=== PATIENT | female | born 1970 | race Native Hawaiian/Other Pacific Islander ===

== ENCOUNTER → 2022-12-02 | Outpatient (CLI) | payer BC ==
--- NOTE | 2022-12-02 15:17 | Diagnostic Imaging Report ---
PROCEDURE: Pelvic comp/transvaginal sonogram. TECHNIQUE: Complete transabdominal and transvaginal pelvic ultrasound was performed. In addition, limited pelvic Doppler was performed. INDICATION: Pelvic pain. Patient underwent hysterectomy in 1997. FINDINGS: The uterus is surgically absent. The right ovary measures 3.1 x 0.7 x 2.0 cm and the left ovary measures 2.2 x 1.1 x 0.9 cm. There is blood flow to both ovaries. No adnexal mass or free pelvic fluid is detected. IMPRESSION: 1. Status post hysterectomy. 2. The study is otherwise unremarkable. Dictated by: Dictated on workstation # [id number]
== END ==
LOC: RAD 09:14
PROVIDERS: ATTEND Obstetrics & Gynecology
DX: R10.2 Pelvic and perineal pain (principal); Z90.710 Acquired absence of both cervix and uterus
CPT/HCPCS: 76830; 76856

== ENCOUNTER 2022-12-16 05:32 | Outpatient (CLI) | payer BC ==
[~2022-12-16] VITALS: Ht 170 cm; Wt 56.5 kg
== END 2022-12-16 09:41 ==
LOC: PREOP 05:32
PROVIDERS: ATTEND Obstetrics & Gynecology
DX: Z01.818 Encounter for other preprocedural examination (principal)

== ENCOUNTER 2022-12-23 08:15 | Day surgery (SDC) | payer BC ==
[~2022-12-23] VITALS: Ht 170 cm; Wt 56.5 kg
[2022-12-23] MEDS ORDERED: LACTATED RINGERS 1,000 ML IV PRN (08:30)
[2022-12-23 08:31] VITALS: BP 144/96
[2022-12-23] MEDS ORDERED: BUPIVACAINE 0.25% 30 ML VIAL ONE (08:37)
[2022-12-23 08:54] LABS: BASOPHILS # (AUTO) 0.1 10^3/uL (0.0-0.1); BASOPHILS % (AUTO) 2 % (0-10); EOSINOPHILS # (AUTO) 0.3 10^3/uL (0.0-0.3); EOSINOPHILS % (AUTO) 5 % (0-10); HEMATOCRIT 40 % (35-52); HEMOGLOBIN 14.1 g/dL (11.5-16.0); LYMPHOCYTES # (AUTO) 1.4 10^3/uL (1.0-4.0); LYMPHOCYTES % (AUTO) 26 % (12-44); MEAN CORPUSCULAR HEMOGLOBIN 33 pg (25-34); MEAN CORPUSCULAR HGB CONC 35 g/dL (32-36); MEAN CORPUSCULAR VOLUME 94 fL (80-99); MEAN PLATELET VOLUME 8.9 fL (9.0-12.2); MONOCYTES # (AUTO) 0.7 10^3/uL (0.0-1.0); MONOCYTES % (AUTO) 12 % (0-12); NEUTROPHILS % (AUTO) 55 % (42-75); PLATELET COUNT 377 10^3/uL (130-400); WHITE BLOOD COUNT 5.5 10^3/uL (4.3-11.0)
== END 2022-12-23 09:29 | disposition home or self-care (01) ==
LOC: SDC 08:15
PROVIDERS: ATTEND Obstetrics & Gynecology
DX: N90.89 Other specified noninflammatory disorders of vulva and perineum (principal); Z53.8 Procedure and treatment not carried out for other reasons
CPT/HCPCS: 36415; 85025; 86850; 86900; 86901; 87081

== ENCOUNTER 2022-12-30 10:31 | Day surgery (SDC) | payer BC ==
[2022-12-30] VITALS (9 sets, daily range): BP systolic 119–132; BP diastolic 78–95
[~2022-12-30] VITALS: Ht 170 cm; Wt 56.5 kg
[2022-12-30] MEDS: LACTATED RINGERS 1,000 ML IV PRN ×2 (10:49→12:25)
--- NOTE | 2022-12-30 11:01 | History & Physical-Surgical ---
HPO-Surgical History of Present Illness Chief Complaint: Right labial lesion Diagnosis/Surgical Indication: RIGHT LABIAL LESION Procedure: WIDE LOCAL EXCISION RIGHT LABIAL LESION Date of Surgery: Dec 30, 2022 Allergies and Home Medications Allergies Coded Allergies: clindamycin (Verified Allergy, Unknown, RASH, 12/16/22) hydrocodone (Verified Allergy, Unknown, INTERNAL ITCH, 12/16/22) morphine (Verified Allergy, Unknown, INTERNAL ITCH, 12/16/22) oxycodone (Verified Allergy, Unknown, INTERNAL ITCH, 12/16/22) tramadol (Verified Allergy, Unknown, FAMILY HX-UNKNOWN, 12/16/22) STATES FATHER/SISTER'S ALL HAVE ALLERGIES TO PAIN MEDICATIONS Patient Home Medication List Home Medication List Reviewed: Yes No Active Prescriptions or Reported Meds Past Jaycmjj-Otezid-Akkvxv Hx Patient Social History Alcohol Beverage of Choice: Beer Smoking Status: Current Everyday Smoker 2nd Hand Smoke Exposure: Yes Recent Hopitalizations: No Immunizations Up To Date Tetanus Booster (TDap): Unknown Seasonal Allergies Seasonal Allergies: No Surgeries Yes (R SHOULDER RC SPURS, ESTHER RIGHT ARM) Hysterectomy Respiratory Yes Cardiovascular No Neurological No Reproductive System Sexually Transmitted Disease: No HIV/AIDS: No Female Reproductive Disorders: Denies [employer] History: Hysterectomy Genitourinary No Gastrointestinal No Musculoskeletal Yes (RIGHT ARM) Scoliosis, Chronic Back Pain, Fractures Endocrine History of Endocrine Disorders: No HEENT History of HEENT Disorders: No Cancer No Psychosocial History of Psychiatric Problem: Yes Behavioral Health Disorders: Anxiety, Depression Integumentary History of Skin or Integumenta: No Blood Transfusions History of Blood Disorders: No Exam Vital Signs Capillary Refill : Labs Laboratory Tests Test 12/30/22 10:45 Range/Units General Appearance: Alert, Oriented X3 HEENT: Atraumatic Respiratory: Clear to Auscultation Cardiovascular: Regular Rate Abdominal: Normal Bowel Sounds Extremities: No Clubbing Neuro: Normal Gait Psych/Mental Status: Mental Status NL Assessment/Plan Admission Diagnosis Diagnosis: Right labial lesion P: Wide local excision Admission Status: Other (Same Day Surgery) CORIN ROJO DO Dec 30, 2022 11:01
--- NOTE | 2022-12-30 11:03 | Discharge Inst-Women's Service ---
Discharge Inst-Women's Serv Depart Medication/Instructions New, Converted or Re-Newed RX: Transmitted to Pharmacy Problems Reviewed?: Yes Consults/Follow Up Additional Follow Up: Yes Orders/Referrals Dr. Rojo in 7-10 days Activity Activity: Activity as Tolerated Driving Instructions: You May Drive NO SMOKING: NO SMOKING Nothing Inside Vagina: No Douching, No Enlow, No Tampons Diet Discharge Diet: No Restrictions Symptoms to Report to : Bleeding Excessive, Pain Increased, Fever Over 101 Degrees F, Vaginal Bleeding Increase, Questions/Concerns For Any Problems or Questions: Contact Your Physician CORIN ROJO DO Dec 30, 2022 11:03
[2022-12-30] MEDS ORDERED: TRM50T PO (11:04)
[2022-12-30] MEDS ORDERED: IBUP-1773 PO (11:04)
[2022-12-30 11:06] LABS: AMPHETAMINE SCREEN, URINE NEGATIVE (NEGATIVE); BARBITURATE SCREEN URINE NEGATIVE (NEGATIVE); BENZODIAZEPINES SCREEN URINE NEGATIVE (NEGATIVE); CANNABINOID SCREEN, URINE POSITIVE (NEGATIVE); COCAINE SCREEN URINE NEGATIVE (NEGATIVE); METHADONE STAT NEGATIVE (NEGATIVE); OPIATE SCREEN URINE NEGATIVE (NEGATIVE); OXYCODONE STAT NEGATIVE (NEGATIVE); PROPOXYPHENE STAT NEGATIVE (NEGATIVE); TRICYCLIC ANTIDEPRESSANTS SCRE NEGATIVE (NEGATIVE)
[2022-12-30] MEDS ORDERED: LIDOCAINE 1% w/EPI 1:100,000 20 ML VIAL ONE (11:13)
[2022-12-30 11:14] LABS: BASOPHILS # (AUTO) 0.1 10^3/uL (0.0-0.1); BASOPHILS % (AUTO) 1 % (0-10); EOSINOPHILS # (AUTO) 0.3 10^3/uL (0.0-0.3); EOSINOPHILS % (AUTO) 4 % (0-10); HEMATOCRIT 43 % (35-52); HEMOGLOBIN 14.4 g/dL (11.5-16.0); LYMPHOCYTES % (AUTO) 34 % (12-44); MEAN CORPUSCULAR HEMOGLOBIN 33 pg (25-34); MEAN CORPUSCULAR HGB CONC 34 g/dL (32-36); MEAN CORPUSCULAR VOLUME 96 fL (80-99); MEAN PLATELET VOLUME 9.1 fL (9.0-12.2); MONOCYTES # (AUTO) 0.6 10^3/uL (0.0-1.0); MONOCYTES % (AUTO) 10 % (0-12); NEUTROPHILS # (AUTO) 2.9 10^3/uL (1.8-7.8); NEUTROPHILS % (AUTO) 50 % (42-75); PLATELET COUNT 365 10^3/uL (130-400); WHITE BLOOD COUNT 5.7 10^3/uL (4.3-11.0)
[2022-12-30] MEDS ORDERED: KETOROLAC INJ 30 MG/ML VIAL IVP ONE (11:15)
[2022-12-30] MEDS ORDERED: ONDANSETRON 4 MG/2 ML (SDV) Z0FRAN IVP PRN ×2 (11:15→12:30)
[2022-12-30] MEDS ORDERED: D5 LR 1,000 ML IV SOLN 1,000 ML IV SCH (11:15)
[2022-12-30] MEDS ORDERED: MIDAZOLAM INJ 2 MG/2 ML VIAL ONE (11:50)
[2022-12-30] MEDS ORDERED: fentaNYL INJECTION 100 MCG/2 ML VIAL ONE (11:50)
[2022-12-30] MEDS ORDERED: LIDOCAINE PF 2% 5 ML VIAL ONE (11:56)
[2022-12-30] MEDS ORDERED: dexAMETHasone INJ 10 MG/ML 1 ML VIAL ONE (11:56)
[2022-12-30] MEDS ORDERED: ONDANSETRON 4 MG/2 ML (SDV) Z0FRAN ONE (11:56)
[2022-12-30] MEDS ORDERED: proPOfol 200 MG/20 ML (DIPRIVAN) VIAL IV ONE (11:56)
[2022-12-30] MEDS ORDERED: BACITRACIN OINTMENT 28 GM TUBE ONE (12:11)
--- NOTE | 2022-12-30 12:28 | Anesthesia-General Post-Op ---
General Patient Condition Mental Status/LOC: Same as Preop Post Op Complications Complications None Follow Up Care/Instructions Patient Instructions None needed. Anesthesia/Patient Condition Patient Condition Patient is doing well, no complaints, stable vital signs, no apparent adverse anesthesia problems. No complications reported per nursing. NEELAM PATEL CRNA Dec 30, 2022 12:28
[2022-12-30] MEDS ORDERED: fentaNYL INJECTION 100 MCG/2 ML VIAL IVP ONE (12:30)
[2022-12-30] MEDS ORDERED: LIDOCAINE 1% w/EPI 1:100,000 20 ML VIAL INJ ONE (12:34)
[2022-12-30] MEDS ORDERED: SEVOFLURANE (ULTANE) 15 ML INHAL SOLN ONE (12:37)
[2022-12-30] MEDS ORDERED: ACETAMINOPHEN 500 MG TABLET ONE (13:21)
[2022-12-30] MEDS ORDERED: ACETAMINOPHEN 500 MG TABLET PO ONE (13:30)
--- NOTE | 2022-12-30 19:41 | OPERATIVE REPORT ---
DATE OF SERVICE: 12/30/2022 PREOPERATIVE DIAGNOSES: A 52-year-old female with ulcerative lesion of the right labia. POSTOPERATIVE DIAGNOSES: A 52-year-old female with ulcerative lesion of the right labia. PROCEDURE: Wide local excision, right labial lesion. SURGEON: Corin Rojo DO ANESTHESIA: LMA general. ESTIMATED BLOOD LOSS: Minimal. URINE OUTPUT: 100 mL drained at the end of the procedure. FLUIDS: 800 mL lactated Ringer solution. FINDINGS: Ulcerated lesion of the right labia minora extending into the labia majora. Grossly normal-appearing external female genitalia, otherwise. SPECIMEN SENT: Right labial lesion excision. INDICATIONS FOR PROCEDURE: This 52-year-old female was a patient who was consulted to my office from her primary care provider for finding of this unusual lesion on her vulva. I discussed with the patient wide local excision in the preoperative area. After all of her questions were answered, she was agreeable to proceed. We discussed the possibility of a potential cancer situation and possible need for reexcision. She was agreeable to proceed. Consent was obtained in the preoperative area and the patient was taken to the operating room. OPERATIVE DESCRIPTION IN DETAIL: Once in the operating room, anesthesia was administered and found to be adequate, was placed in dorsal lithotomy position, prepped and draped in sterile fashion. I first began by marking wide locally approximately 3-4 mm wide for this margin of the lesion that I can identify. This is an approximately 3 x 4 cm lesion. I then made an elliptical incision around this lesion and dissected off the cutaneous and subcutaneous tissue, leaving a defect, but completely excising the lesion. Once it is excised, it was sent as right labial lesion. I then reapproximated the margins of the lesion using 3-0 Vicryl suture in interrupted fashion. There was good reapproximation noted after doing this. There is little to no bleeding noted throughout the procedure. I covered the incision with bacitracin ointment and the underlying subcutaneous tissue was infiltrated with 1% lidocaine with epinephrine to control postoperative bleeding. The patient tolerated the procedure well and was taken to recovery area in stable condition. Lap and sponge counts were correct at the end of the procedure. Instrument counts correct as well. Job ID: [id number] DocumentID: [id number] Dictated Date: 12/30/2022 12:32:46 [employer] Manager Date: 12/30/2022 19:40:00 Dictated By: CORIN ROJO DO
== END 2022-12-30 14:05 | disposition home or self-care (01) ==
LOC: SDC 10:31
PROVIDERS: ATTEND Obstetrics & Gynecology
DX: N87.1 Moderate cervical dysplasia (principal); F17.210 Nicotine dependence, cigarettes, uncomplicated; Z28.310 Unvaccinated for COVID-19
CPT/HCPCS: 36415; 80306; 85025; 86850; 86900; 86901; 87081; 88305

== ENCOUNTER → 2023-01-06 | Outpatient (CLI) | payer BC ==
[~2023-01-06] MED LIST: IBUP-1773 PO; TRM50T PO
--- NOTE | 2023-01-06 10:45 | Diagnostic Imaging Report ---
PROCEDURE: MRI lumbar spine. TECHNIQUE: Multiplanar, multisequence MRI of the lumbar spine was performed without contrast. INDICATION: Back pain. COMPARISON: None. FINDINGS: . There is mild retrolisthesis of L4 on L5, otherwise the lumbar lordosis is preserved. Multilevel vertebral body hemangiomas. No marrow replacement process to suggest malignancy. No acute compression fracture. Mild multilevel disc height loss and disc desiccation. Included views of the abdomen demonstrates no significant abnormality. The conus and cauda equina have a normal appearance. T12-L1: Disc bulge. Mild facet arthropathy. Mild spinal canal narrowing. No neural foraminal narrowing. L1-L2: Disc bulge. Mild facet arthritis. No significant spinal canal or neuroforaminal stenosis. L2-L3: Asymmetric left foraminal disc of bulge. Mild facet arthritis. Mild spinal canal narrowing. Mild left neural foraminal narrowing. No right neural foraminal narrowing. L3-L4: Disc bulge. Mild facet arthritis. Mild spinal canal narrowing. Mild bilateral neural foraminal narrowing. L4-L5: Disc bulge. Mild facet arthritis. Ligamentum flavum thickening. Moderate spinal canal and lateral recess stenosis. Mild bilateral neural foraminal narrowing. L5-S1: Disc bulge. Mild facet arthritis. No significant spinal canal or neuroforaminal stenosis IMPRESSION: Multilevel degenerative changes of the lumbar spine, worst at L4-L5 with moderate spinal canal and lateral recess stenosis. Additional multilevel degenerative changes of the lumbar spine described level by level above. Dictated by: Dictated on workstation # [id number]
== END ==
LOC: RAD 08:20
PROVIDERS: ATTEND Nurse Practitioner Family
DX: M51.26 Other intervertebral disc displacement, lumbar region (principal); M48.061 Spinal stenosis, lumbar region without neurogenic claudication; M47.816 Spondylosis without myelopathy or radiculopathy, lumbar region; M24.28 Disorder of ligament, vertebrae; M51.37 Other intervertebral disc degeneration, lumbosacral region; M47.817 Spondylosis without myelopathy or radiculopathy, lumbosacral region; M47.895 Other spondylosis, thoracolumbar region
CPT/HCPCS: 72148